=== PATIENT | female | born 1990 | race African-American/Black ===

== ENCOUNTER 2022-07-08 21:34 | Emergency (ER) | payer OTHER ==
[~2022-07-08] VITALS: Ht 170.2 cm; Wt 75.0 kg
[2022-07-08 21:34] VITALS: BP 120/76
[2022-07-08] MEDS ORDERED: ALBU8HFA IH (21:47)
[2022-07-08 22:36] LABS: COVID AG,FIA SOURCE NASAL SWAB
[2022-07-08 23:13] LABS: INFLUENZA TYPE A NEGATIVE FOR TYPE A (NEGATIVE); INFLUENZA TYPE B NEGATIVE FOR TYPE B (NEGATIVE)
[2022-07-09] MEDS ORDERED: AMOX1TAB16 PO ×2 (01:39→04:19)
[2022-07-09] MEDS ORDERED: AMOX TR/POT CLAV 875 MG/125 MG TABLET PO ONE (02:00)
== END 2022-07-09 02:16 | disposition home or self-care (01) ==
LOC: EMS 21:35
DX: J01.90 Acute sinusitis, unspecified (principal); J45.909 Unspecified asthma, uncomplicated; F17.210 Nicotine dependence, cigarettes, uncomplicated; Z20.822 Contact with and (suspected) exposure to COVID-19
CPT/HCPCS: 87804; 99283

== ENCOUNTER 2024-05-06 20:48 | Emergency (ER) | payer OTHER ==
[~2024-05-06] VITALS: Ht 162.6 cm; Wt 72.7 kg
[~2024-05-06 20:48] MED LIST: ALBU18HF12 IH; AMOX-457 PO
[2024-05-06 21:01] VITALS: TEMP 99.1
[2024-05-06 21:17] VITALS: BP 132/75; PULSE 101; RESP 18; O2SAT 100
[2024-05-06 21:33] LABS: COVID AG,FIA SOURCE NASAL SWAB
[2024-05-06 21:52] LABS: SARS-COV2 (COVID) ANTIGEN,FIA Negative (Negative)
[2024-05-06 21:54] LABS: INFLUENZA TYPE A NEGATIVE FOR TYPE A (NEGATIVE); INFLUENZA TYPE B NEGATIVE FOR TYPE B (NEGATIVE)
[2024-05-06] MEDS ORDERED: CETI-450 PO (22:23)
[2024-05-06] MEDS ORDERED: AMOX-457 PO (22:23)
[2024-05-06] MEDS ORDERED: ALBU18HF12 IH (22:23)
== END 2024-05-06 22:52 | disposition home or self-care (01) ==
LOC: EMS 20:48
DX: J01.90 Acute sinusitis, unspecified (principal); J45.909 Unspecified asthma, uncomplicated; F17.210 Nicotine dependence, cigarettes, uncomplicated; Z88.6 Allergy status to analgesic agent; Z90.49 Acquired absence of other specified parts of digestive tract; Z20.822 Contact with and (suspected) exposure to COVID-19
CPT/HCPCS: 87804; 99283; 99406